=== PATIENT | female | born 1965 | race Caucasian/White ===

== ENCOUNTER 2020-09-14 07:37 | Outpatient (CLI) | payer OTHER, SELFPAY ==
--- NOTE | ~2020-09-14 | US_ITS ---
US retroperitoneal comp 09/14/2020 08:07 Procedure: Realtime transabdominal ultrasound of the kidneys and bladder. Indication: Pelvic pain. UTI. Comparison: No prior studies for comparison. Findings: Renal echotexture is normal bilaterally without hydronephrosis, contour deforming mass or r enal calculus. Hypoechoic irregular shaped 11 mm mass measuring 11 x 8 x 8 mm, most likely complicate d cyst. Consider correlation with contrast-enhanced CT or MRI recommended. The right kidney measures 8.1 cm and left kidney measures 8.3 cm. Bladder within normal limits. Impression: 1: Hypoechoic irregular shaped 11 mm mass measuring 11 x 8 x 8 mm, most likely complicated cyst. Cons ider correlation with contrast-enhanced CT or MRI recommended. Reviewed, dictated and finalized at location B. Impression: 1: Hypoechoic irregular shaped 11 mm mass measuring 11 x 8 x 8 mm, most likely complicated cyst. Consider correlation with contrast-enhanced CT or MRI recomme nded.
== END 2020-09-14 07:38 | disposition home or self-care (01) ==
PROVIDERS: PCP Family Medicine; Visit Provider Nurse Practitioner Adult Health
DX: R10.2 Pelvic and perineal pain (principal)
CPT/HCPCS: 76770

== ENCOUNTER 2020-09-24 07:24 | Outpatient (CLI) | payer OTHER, SELFPAY ==
--- NOTE | ~2020-09-24 | CT_ITS ---
EXAMINATION: CT abdomen wo/w con DATE: 09/24/2020 08:30 INDICATION: Renal mass TECHNIQUE: Computed tomography (CT) of the abdomen and pelvis was performed without and with 100 mL O mnipaque-350 intravenous contrast. Automated exposure control and iterative reconstruction technique were employed. The dose-length product was 235.73 mGy-cm. COMPARISON: Ultrasound dated 09/14/2020 FINDINGS: Minimal atelectasis at the bilateral lung bases. Heart size is normal. No pericardial or pleural effu kristie. Very small sliding-type hiatal hernia. A few scattered hepatic and splenic calcific lesions con sistent with old granulomatous disease. Gallbladder, pancreas and bilateral adrenal glands are normal . 11 mm nonenhancing low-density cyst in the interpolar region of the left kidney corresponding in si ze and location to the lesion seen on prior ultrasound. 5 mm lesion at the medial lower pole of the r ight kidney which appears relatively hypodense on the post contrast imaging, indiscernible on the pre contrast imaging which is too small to definitively characterize. Visualized portions of the bowels a re unremarkable. No pathologically enlarged abdominal lymphadenopathy. Mild lumbar levocurvature. IMPRESSION: 1. 11 mm left renal cyst corresponds to the lesion of concern on prior ultrasound. Second 5 mm right renal lesion evident only is a region of relatively decreased attenuation on the postcontrast images, most likely an additional renal cyst but which is too small to definitively characterize. Consider 6 -12 month follow-up pre and postcontrast MRI. 2. Very small sliding-type hiatal hernia. Reviewed, dictated and finalized at location A. IMPRESSION: 1. 11 mm left renal cyst corresponds to the lesion of concern on prior ultrasou nd. Second 5 mm right renal lesion evident only is a region of relatively decre ased attenuation on the postcontrast images, most likely an additional renal cy st but which is too small to definitively characterize. Consider 6-12 month fol low-up pre and postcontrast MRI. 2. Very small sliding-type hiatal hernia.
== END 2020-09-24 07:25 | disposition home or self-care (01) ==
LOC: ANHIMG 07:29
PROVIDERS: PCP Family Medicine; Visit Provider Urology
DX: N28.89 Other specified disorders of kidney and ureter (principal); K44.9 Diaphragmatic hernia without obstruction or gangrene; N28.1 Cyst of kidney, acquired
CPT/HCPCS: 74170; Q9967

== ENCOUNTER 2020-10-31 14:45 | Outpatient (CLI) | payer OTHER, SELFPAY ==
--- NOTE | ~2020-10-31 | MM_ITS ---
EXAMINATION: MM screening [facility] BI w fawn HISTORY: Screening mammogram TECHNIQUE: Craniocaudal and mediolateral oblique 3-D tomosynthesis images were obtained and synthetic 2-D images were generated. CAD analysis was submitted and interpreted. COMPARISON: 10/08/2018, 09/12/2017 BREAST PARENCHYMAL COMPOSITION: The breasts are heterogeneously dense, which may obscure small masses . FINDINGS: There is no evidence of suspicious mass, calcification, or architectural distortion to sugg est malignancy in either breast. There has been no suspicious interval change. IMPRESSION: 1. No mammographic evidence of malignancy. 2. Recommend routine screening mammography in one year. BI-RADS Category 1: Negative Reviewed, dictated and finalized at location A.
--- NOTE | ~2020-10-31 | DEXA_ITS ---
Bone Density Report Name: Alexandria Parrish Age: 55 Sex: Female Ethnicity: White Date of : 1965 Indication: postmenopausal osteoporosis; height loss; inflammatory bowel disease; asthma or emphysema; hysterectomy; Referring Provider: Carissa Woods Study: Bone densitometry was performed. Exam Date: October 31, 2020 Accession number: [id number] Bone Density: Region BMD T-score Z-score Classification AP Spine (L1-L4) 0.628 -3.8 -2.7 Osteoporosis Femoral Neck (Left) 0.560 -2.6 -1.5 Osteoporosis Total Hip (Left) 0.690 -2.1 -1.4 Osteopenia Total Hip Bilateral Avg 0.684 -2.1 -1.5 Osteopenia Femoral Neck (Right) 0.552 -2.7 -1.6 Osteoporosis Total Hip (Right) 0.677 -2.2 -1.5 Osteopenia World Health Organization criteria for BMD impression classify patients as: Normal (T-score at or above -1.0), Osteopenia (T-score between -1.0 and -2.5), or Osteoporosis (T-score at or below -2.5). 10-year Fracture Risk: FRAX not reported because: Some T-score for Spine Total or Hip Total or Femoral Neck at or below -2.5 Previous Exams: Region Exam Age BMD T-score BMD Change BMD Change Date g/cm2 vs Baseline vs Previous AP Spine(L1-L4) 10/31/2020 55 0.628 -3.8 -0.031(-4.7%)* -0.031(-4.7%)* 09/12/2017 51 0.659 -3.5 Total Hip(Left) 10/31/2020 55 0.690 -2.1 -0.031(-4.4%)* -0.031(-4.4%)* 09/12/2017 51 0.721 -1.8 Total Hip(Right) 10/31/2020 55 0.677 -2.2 -0.025(-3.6%) -0.025(-3.6%) 09/12/2017 51 0.702 -2.0 *Denotes significance at 95% confidence level, LSC for AP Spine = 0.022 g/cm2, LSC for Total Hip = 0.027 g/cm2 Clinical Information Provided by Patient: Has used the following medications: HRT (i.e. estrogen/hormone therapy) Has the following medical conditions: Asthma or Emphysema, Inflammatory bowel diseases, Hysterectomy Patient maximum height was 59.5 Menopause Age: 30 No regular weight bearing exercise Does not regularly consume dairy products Drinks caffeinated beverages Onset of menses at age 16 Number of children 1 Impression: The patient has osteoporosis, based on the Total Spine T-score. The BMD for the AP Spine(L1-L4) decreased, changing by -4.7% since the last DXA exam. The BMD for the Total Hip(Left) decreased, changing by -4.4% since the last DXA exam. Discussion: HIGH RISK OF FRACTURE. BONE DENSITY IS UNDESIRABLY LOW AT ONE OR MORE SKELETAL SITES, CONSISTENT WITH OSTEOPOROSIS. ALSO, BONE DENSITY IS LOWER THAN EXPECTED FOR AGE AND SEX AT ONE O
== END 2020-10-31 14:46 | disposition home or self-care (01) ==
PROVIDERS: PCP Family Medicine; Visit Provider Advanced Practice Midwife
DX: Z12.31 Encounter for screening mammogram for malignant neoplasm of breast (principal); Z13.820 Encounter for screening for osteoporosis; Z78.0 Asymptomatic menopausal state; M81.0 Age-related osteoporosis without current pathological fracture; M85.852 Other specified disorders of bone density and structure, left thigh; M85.851 Other specified disorders of bone density and structure, right thigh
CPT/HCPCS: 77063; 77067; 77080

== ENCOUNTER 2021-08-17 09:27 | Outpatient (CLI) | payer OTHER, SELFPAY ==
--- NOTE | ~2021-08-17 | MR_ITS ---
EXAMINATION: MR abdomen wo/w con DATE: 08/17/2021 10:45 INDICATION: Kidney mass. TECHNIQUE: Magnetic resonance imaging (MRI) of the abdomen was performed without and with 9 mL MultiH ance intravenous contrast. Sequences included coronal T2-weighted FS FSE, coronal and axial FIESTA FS , coronal LAVA-flex, axial LAVA, axial T2-weighted FSE, axial T1-weighted dual-echo FSPGR, axial STIR FSE, and axial DWI. Postcontrast sequences included coronal LAVA-flex and a time course of axial LAV A. COMPARISON: CT abdomen 09/24/2020 FINDINGS: There is a small sliding hiatal hernia. The liver, gallbladder, spleen, pancreas, and adrenal glands are normal. There are cysts in the kidneys measuring up to 1.3 cm on the left. There is focal cortica l volume loss of left kidney. There are no dilated loops of bowel. The appendix is normal. There are no pathologically enlarged lymph nodes. There is no free intraperitoneal fluid. IMPRESSION: 1. Benign cysts in the kidneys. Reviewed, dictated and finalized at location E.
[2021-08-17 10:11] LABS: Estimated Glomerular Filt Rate > 60
== END 2021-08-17 09:28 | disposition home or self-care (01) ==
LOC: ANHIMG 09:34
PROVIDERS: PCP Family Medicine; Visit Provider Urology
DX: N28.89 Other specified disorders of kidney and ureter (principal); N28.1 Cyst of kidney, acquired
CPT/HCPCS: 74183; A9577